=== PATIENT | male | born 1965 | race Caucasian/White ===

== ENCOUNTER 2018-09-08 05:59 | Day surgery (SDC) | payer OTHER ==
[~2018-09-08] VITALS: Ht 177.8 cm; Wt 97.5 kg
[~2018-09-08 05:59] MED LIST: ASPI-482 PO; LISI-334 PO; NAPR220C4 PO; OXYC1TAB19 PO; SIMV20TA3 PO; TAMS0.4C97 PO
[2018-09-08] MEDS ORDERED: LIDOCAINE 2% JELLY 6ML IN APPLICATOR. ONE (06:57)
[2018-09-08] MEDS ORDERED: IOHEXOL 300 MG/ML 100ML VIAL. ONE (06:57)
[2018-09-08] MEDS ORDERED: PROCHLORPERAZINE 10 MG/2 ML VIAL. IV PRN ×2 (07:00→08:45)
[2018-09-08] MEDS ORDERED: ONDANSETRON PF 4 MG/2 ML VIAL. IV PRN ×2 (07:00→08:45)
[2018-09-08] MEDS ORDERED: IV RINGERS,LACTATED 1000ML 1,000 ML IV SCH (07:00)
[2018-09-08] MEDS ORDERED: fentaNYL PF VIAL 100 MCG/2 ML VIAL IV PRN ×2 (07:00)
[2018-09-08] MEDS ORDERED: HYDROmorphone 2 MG/ML VIAL IV PRN (07:00)
[2018-09-08] MEDS ORDERED: MORPHINE SULFATE 2 MG/ML VIAL. IV PRN ×2 (07:00→08:45)
[2018-09-08] MEDS ORDERED: LIDOCAINE 1% PF 2 ML VIAL. ID PRN (07:00)
[2018-09-08] MEDS ORDERED: MIDAZOLAM HCL/PF 2 MG/2 ML VIAL. ONE (07:21)
[2018-09-08] MEDS ORDERED: fentaNYL PF VIAL 100 MCG/2 ML VIAL ONE (07:21)
[2018-09-08] MEDS ORDERED: PHENYLEPHRINE 10 MG/ML VIAL. ONE (07:57)
[2018-09-08] MEDS ORDERED: DEXAMETHASONE SOD PHOS 20 MG/5 ML VIAL. ONE (07:57)
[2018-09-08] MEDS ORDERED: LIDOCAINE 2% PF 5 ML VIAL. ONE (07:57)
[2018-09-08] MEDS ORDERED: 0.9 % SODIUM CHLORIDE 20 ML VIAL. IJ ONE (07:57)
[2018-09-08] MEDS ORDERED: PROPOFOL 20 ML IV ONE (07:57)
[2018-09-08] MEDS ORDERED: SEVOFLURANE 31 TO 60 MINUTES. IH ONE (08:43)
[2018-09-08] MEDS ORDERED: NALOXONE 0.4 MG/ML VIAL. IV PRN (08:45)
[2018-09-08] MEDS ORDERED: KETOROLAC 15 MG/ML VIAL. IV PRN (08:45)
[2018-09-08] MEDS ORDERED: diphenhydrAMINE HCL 25 MG CAPSULE PO PRN (08:45)
[2018-09-08] MEDS ORDERED: 0.9 % SODIUM CHLORIDE 10 ML DISP.SYRIN. IV PRN (08:45)
[2018-09-08] MEDS ORDERED: HYDROcodone/APAP 5/325MG 1 TAB TABLET PO PRN (08:45)
--- NOTE | 2018-09-08 08:50 | PDOC4 ---
OPERATIVE NOTE Date: Date: Sep 08, 2018 Pre-Op Diagnosis: Rt Ureteral Calc Post-Op Diagnosis: R hydroureter, bladder calculi Procedure Performed: cysto, R RPG, laser litho bladder stone, placement of R ureteral stent on string Surgeon: valery Anesthesia Type: gen Blood Loss: min Specimans Obtained: bladder calculi Findings: mod R hydroureter, no stone in R ureter mod lg bladder stone Complications: neg Operative Note: Gen Anes Lith'y pos'n Cysto w 21 Fr scope, several small bladder stones and one dominant stone R RPG performed demonstrating mild distal narrowing and mod distal hydroureter R ureteroscopy after placing a guide wire. No stone or abnormality. Bladder stones requred laser litho before rmoval with scope. 6 Fr x 26 cm stent on string placed in R ureter under fluoro control. Bladder emptied and scope removed. String taped to pt's penis. pt awakened and transferred to RR in good cond Disp: home w Rx Lortab after recovery RTO 5 d for stent removal stones sent for analysis JOSE SANTIZO MD Sep 08, 2018 08:50
[2018-09-08] MEDS ORDERED: HYDR-2761 PO ×2 (09:01→09:02)
[2018-09-08 09:45] VITALS: BP 128/87
[2018-09-08] MEDS ORDERED: POTASSIUM CL 20MEQ-0.45% NACL 1,000 ML IV SCH (10:00)
[2018-09-08] MEDS ORDERED: OPIUM/BELLADONNA 30/16.2MG SUPP.RECT. PR SCH (14:00)
--- NOTE | 2018-09-09 10:09 | PATHOLOGY ---
[facility] Accession Number: [id number] . 01 Material submitted: . RIGHT URETERAL CALCULUS . 01 Clinical history: . Right ureteral calculus with obstruction . 02 Diagnosis: Right ureteral calculus: - Consistent with calculi. - Specimen is sent out for further processing. - Report pending outside analysis. LBQ/09/08/2018 . 02 Electronically signed: . Kavon Pro MD, Pathologist NPI- [id number] . 01 Gross description: . The specimen is received fresh, labeled "Sandor Dwyer, right ureteral calculus". Received are multiple wu calculi measuring 2.5 x 0.8 x 0.4 cm in aggregate. The specimen is forwarded to sendouts for further processing. (SDY; 09/08/2018) SYU/SYU . 02 Pathologist provided ICD-10: N20.1 . 02 CPT . 286214 Specimen Comment: A courtesy copy of this report has been sent to Specimen Comment: [phone], . Specimen Comment: Report sent to / DR SAMUELS Specimen Comment: A duplicate report has been generated due to demographic updates. Performed at: 01 [facility] [address], [place], [place] [id number] MD Patric Gonzáles MD Phone: [phone] Performed at: 02 [facility] [address], [place] [id number] MD Kavon Pro MD Phone: [phone]
--- NOTE | 2018-09-23 16:34 | RAD ---
Indication: Weakness, fall. TECHNIQUE: Right retrograde urography. 3 images. COMPARISON: None FINDINGS: Dilated right distal ureter is seen without internal filling defects. Proximal portion of the stent is seen. Impression: Fluoroscopy guidance for right urography with placement of right nephroureteral stent. Please see procedure note in patient's chart for full information. Electronically signed by: Johnny Rabago DO (09/23/2018 4:32 PM) [facility]
== END 2018-09-08 09:55 | disposition home or self-care (01) ==
LOC: SURG 05:59
PROVIDERS: ATTEND Urology
DX: N21.0 Calculus in bladder (principal); N13.4 Hydroureter; I10 Essential (primary) hypertension; E78.5 Hyperlipidemia, unspecified; J45.909 Unspecified asthma, uncomplicated; Z79.82 Long term (current) use of aspirin; Z79.899 Other long term (current) drug therapy; Z98.890 Other specified postprocedural states
CPT/HCPCS: 52318; 52332; 74420; 82365; 88300; A7015; C2617; J0696; J1100; J2001; J2250; J2704; J3010; Q9967; C1769